=== PATIENT | female | born 1985 | race Caucasian/White ===

== ENCOUNTER 2020-08-08 13:08 | Emergency (ER) | payer OTHER | END 2020-08-08 14:05 | disposition home or self-care (01) | LOC: JVIRT 13:08 | DX: Z03.818 Encounter for observation for suspected exposure to other biological agents ruled out (principal) | CPT/HCPCS: C9803; G2012-GT; U0003 ==

== ENCOUNTER 2020-08-11 09:52 | Emergency (ER) | payer OTHER | END 2020-08-11 10:15 | disposition home or self-care (01) | LOC: JVIRT 09:52 | DX: Z11.59 Encounter for screening for other viral diseases (principal); R05 Cough; R53.1 Weakness | CPT/HCPCS: C9803; Q3014-GT; U0003 ==